=== PATIENT | female | born 1975 | race African-American/Black ===

== ENCOUNTER 2023-07-22 11:53 | Emergency (ER) | payer MEDICAID, OTHER ==
[~2023-07-22] VITALS: Ht 167.6 cm; Wt 81.0 kg
[~2023-07-22 11:53] MED LIST: ASPI-1406 MT; ATOR-2 MT; CLOP-31 MT; GLIP5TAB12 MT; INSU100I33 SQ; LISI40TA13 MT; METO5TAB2 PO; PANT40TA51 PO
[2023-07-22 11:54] VITALS: O2SAT 98
[2023-07-22] MEDS ORDERED: NITROGLYCERIN 0.4MG TABLET SL SL PRN (13:00)
[2023-07-22] MEDS ORDERED: ASPIRIN 81MG TABLET PO ONE (13:00)
[2023-07-22 13:33] LABS: BASOPHILS % 0.3 % (0.0-2.0); EOSINOPHILS % 1.3 % (0.0-5.0); HEMATOCRIT. 34.6 % (36.0-48.0); HEMOGLOBIN. 11.4 g/dL (12.0-16.0); LYMPHOCYTES % 18.2 % (20.0-50.0); MEAN CORPUSCULAR HEMOGLOBIN 28.3 pg (28.0-32.0); MEAN PLATELET VOLUME 8.3 fl (7.4-10.4); MONOCYTES % 6.3 % (2.0-8.0); NEUTROPHILS % 73.9 % (40.0-76.0); PLATELET 289 x1000/uL (130-400); RED BLOOD CELL COUNT 4.02 mill/uL (4.2-5.4); RED CELL DISTRIBUTION WIDTH 12.9 % (11.6-14.6); WHITE BLOOD COUNT 9.4 x1000/uL (4.5-11.0)
[2023-07-22 13:40] LABS: CHLORIDE 98 mEq/L (98-107); INDEX HEMOLYSI 3 (1-3); INDEX ICTERIC 1 (1-4); INDEX LIPEMIC 1 (1-3); POTASSIUM 3.8 mEq/L (3.5-5.1); SODIUM 133 mEq/L (136-145)
[2023-07-22 13:53] LABS: ALANINE AMINOTRANSFERASE 42 IU/L (13-61); ALBUMIN 3.6 g/dL (3.4-5.0); ASPARTATE AMINOTRANSFERASE 32 IU/L (15-37); BILIRUBIN TOTAL 0.3 mg/dL (0.1-1.0); CALCIUM 9.6 mg/dL (8.5-10.1); CARBON DIOXIDE 30 mEq/L (21-32); CREATININE 0.7 mg/dL (0.6-1.3); GLUCOSE 292 mg/dL (70-105); NT PRO B-TYPE NATRIURETIC PEP 71 pg/mL (5-125); PROTEIN TOTAL 8.3 g/dL (6.0-8.3); TROPONIN I HIGH SENSITIVITY 6 ng/L (<54); UREA NITROGEN BLOOD 19 mg/dL (7-21)
[2023-07-22 13:56] LABS: HCG SCREEN NEGATIVE
[2023-07-22 15:39] LABS: TROPONIN I HIGH SENSITIVITY < 4 ng/L (<54)
[2023-07-22 17:23] VITALS: BP 167/93; PULSE 83; RESP 15; TEMP 98.1
== END 2023-07-22 17:35 | disposition short-term general hospital (02) ==
LOC: ER 11:53
DX: R07.9 Chest pain, unspecified (principal); R55 Syncope and collapse; E11.9 Type 2 diabetes mellitus without complications; E78.00 Pure hypercholesterolemia, unspecified; I10 Essential (primary) hypertension; Z98.890 Other specified postprocedural states
CPT/HCPCS: 80053; 84703; 83880; 85025; 85379; 84484; 36415; 71045; 93005; 99285; Z7610 ×4